=== PATIENT | male | born 1940 | race Caucasian/White ===

== ENCOUNTER → 2021-09-15 14:44 | Outpatient (CLI) | payer MEDICARE, OTHER, SELFPAY ==
--- NOTE | 2021-09-15 14:52 | XR_ITS ---
FINAL REPORT CLINICAL HISTORY: KIDNEY STONE FINDINGS: A single view of the abdomen was obtained. There is a nonobstructive bowel gas pattern. There are no abnormally dilated loops of small bowel. There is a moderate amount of retained stool. There are multiple right renal stones measuring up to 14 mm. There are several small left renal stones measuring up to 3 mm. There are presumed phleboliths in the pelvis. IMPRESSION: Bilateral renal stones measuring up to 14 mm on the right and up to 3 mm on the left. Reviewed, Interpreted and Dictated by Chito Harris III, MD Transcribed by Mary Guzman Authenticated by Chito Harris III, MD on 09/15/2021 03:40:17 PM [facility]
== END ==
PROVIDERS: Visit Provider Urology
DX: N20.0 Calculus of kidney (principal)
CPT/HCPCS: 74018; 87086

== ENCOUNTER → 2021-09-15 15:43 | Outpatient (CLI) | payer MEDICARE, OTHER, SELFPAY | PROVIDERS: Visit Provider Urology | DX: N39.0 Urinary tract infection, site not specified (principal) | CPT/HCPCS: 87086 ==

== ENCOUNTER → 2021-09-29 09:34 | Outpatient (CLI) | payer MEDICARE, OTHER, SELFPAY ==
--- NOTE | 2021-09-29 09:37 | XR_ITS ---
FINAL REPORT CLINICAL HISTORY: KIDNEY STONE COMPARISON: September 15, 2021 FINDINGS: A single view of the abdomen was obtained. There is a nonobstructive bowel gas pattern. There are no abnormally dilated loops of small bowel. There is a moderate amount of retained stool. There are 2 right renal stones measuring 14 mm and 12 mm. There is a probable left renal stone measuring 4 mm. There are presumed phleboliths in the pelvis. There is mild rightward curvature of the spine. IMPRESSION: Nephrolithiasis. Reviewed, Interpreted and Dictated by Chito Harris III, MD Transcribed by Mary Guzman Authenticated by Chito Harris III, MD on 09/29/2021 10:38:51 AM [facility]
== END ==
PROVIDERS: Visit Provider Urology
DX: N20.0 Calculus of kidney (principal)
CPT/HCPCS: 74018

== ENCOUNTER → 2021-10-12 09:37 | Outpatient (CLI) | payer MEDICARE, OTHER, SELFPAY | PROVIDERS: Visit Provider Urology | DX: N20.0 Calculus of kidney (principal); Z01.812 Encounter for preprocedural laboratory examination; Z11.52 Encounter for screening for COVID-19 | CPT/HCPCS: C9803; U0003; U0005 ==

== ENCOUNTER → 2021-10-13 10:39 | Outpatient (CLI) | payer MEDICARE, OTHER, SELFPAY ==
--- NOTE | 2021-10-13 10:40 | CT_ITS ---
FINAL REPORT CLINICAL HISTORY: KIDNEY STONE, PAIN LEFT SIDE, HX OF STONES, DIABETIC FINDINGS: Axial CT images of the abdomen and pelvis were obtained without intravenous contrast. Coronal reformatted images were also obtained.This study was performed with techniques to keep radiation doses as low as reasonably achievable (ALARA). Individualized dose reduction techniques using automated exposure control or adjustment of mA and/or kV according to the patient's size were employed. Abdomen: There is mild scarring in the lung bases. There are multiple bilateral nonobstructing renal stones. The largest stone in the upper pole the right kidney measures 13 mm. There is moderate left hydronephrosis and hydroureter secondary to several adjacent distal left ureteral stones measuring up to 5 mm. The liver, spleen and pancreas have an unremarkable, unenhanced appearance. No mass or adenopathy is seen. No inflammatory process is identified. There are moderate vascular calcifications. Pelvis: There are several phleboliths in the pelvis. There are prostate calcifications. No mass or abnormal fluid collection is identified. IMPRESSION: Moderate left hydronephrosis and hydroureter secondary to several adjacent distal left ureteral stones. Multiple bilateral nonobstructing renal stones noted. Reviewed, Interpreted and Dictated by Chito Harris III, MD Transcribed by Shira Martin Authenticated by Chito Harris III, MD on 10/13/2021 12:52:24 PM [facility]
--- NOTE | 2021-10-13 10:40 | XR_ITS ---
FINAL REPORT CLINICAL HISTORY: ureteral stone on left side, pain COMPARISON: 09/29/2021 FINDINGS: SINGLE VIEW ABDOMEN There is a nonspecific, nonobstructive gas pattern. There is no bowel dilatation. There is a 7 mm calcification in left lower pelvis consistent with a distal ureteral stone. There is probable phlebolith on the right. There is a 14 mm stone in the right kidney. There is a small nonobstructing stone in the left kidney. IMPRESSION: Bilateral renal stones. Distal left ureteral stone. Reviewed, Interpreted and Dictated by Chito Harris III, MD Transcribed by Renetta Doss Authenticated by Chito Harris III, MD on 10/13/2021 12:31:32 PM [facility]
== END ==
PROVIDERS: Visit Provider Urology
DX: N20.1 Calculus of ureter (principal); N20.0 Calculus of kidney
CPT/HCPCS: 74018; 74176

== ENCOUNTER 2021-10-14 09:26 | Day surgery (SDC) | payer MEDICARE, OTHER, SELFPAY ==
[2021-10-12 08:14] VITALS: BMI 32.1
[2021-10-14] VITALS (10 sets, daily range): BP systolic 99–189; BP diastolic 57–97; PULSE 60–78; RESP 10–18; TEMP 36.3–36.9; O2SAT 92–98
[2021-10-14 10:14] LABS: MANUAL DIFFERENTIAL MANUAL DIFFERENTIAL (MANUAL DIFF)
[2021-10-14 10:17] LABS: Basophils % 0.4 % (0.1-2.0); Eosinophils # 0.2 K/mm3 (0.0-0.4); Eosinophils % 2.8 % (0.1-12.0); Hematocrit 48.6 % (42.0-52.0); Hemoglobin 16.4 g/dL (14.1-18.0); Lymphocytes # 1.4 K/mm3 (0.7-4.5); Lymphocytes % 16.2 % (10-50); Mean Corpuscular HGB Conc 33.7 g/dL (31.8-35.4); Mean Corpuscular Volume 91.9 fl (80-94); Mean Platelet Volume 8.2 fl (7.4-10.4); Monocytes # 0.5 K/mm3 (0.1-1.0); Monocytes % 6.3 % (1.7-9.3); Neutrophils # 6.2 K/mm3 (1.8-7.8); Neutrophils % 74.3 % (37.0-80.0); Platelet Count 180 K/mm3 (142-424); Red Blood Count 5.29 M/mm3 (4.60-6.20); Red Cell Distribution Width 13.3 % (11.5-17.5); White Blood Count 8.4 K/mm3 (4.8-10.8)
[2021-10-14 10:59] LABS: Chloride 100 mmol/L (98-107)
[2021-10-14 11:00] LABS: Sodium 133 mmol/L (136-145)
[2021-10-14 11:02] LABS: Blood Urea Nitrogen 17 mg/dl (9-20); Creatinine Clearance Estimated 85 mL/min (50-200); Estimated Glomerular Filt Rate 81 ml/min (>60); GFR (African American) 98 ML/MIN (>60)
[2021-10-14 11:03] LABS: Calcium 9.1 mg/dl (8.4-10.2); Carbon Dioxide 28 mmol/L (22.0-30.0); Glucose 132 mg/dl (74-100)
--- NOTE | 2021-10-14 11:08 | HMH.ANESCL ---
[facility] Anesthesia Checklist - Patient Identification Patient Identification: Arm Band - Structural Data Admitted From: Home Planned Operative Procedure/s: Ureteroscopy with stone extraction Consent for Planned Operative Procedure(s) Verified: Yes - NPO Status Verified Time NPO: 06:00 (Coffee) - Additional verifications Anesthesia Reactions: No Hx Blood Transfusions: No Blood Transfusion Reaction: No - Airway Assessment C-Spine Mobility Assessed: Yes TMJ Mobility Assessed: Yes Dentition: Poor Dentition - Neurological Assessment Level of Consciousness: Awake Hx Seizures: No Numbness or tingling in extremities: No - Anesthesia Plan Anesthesia Risk discussed: Yes Anesthesia Plan: Verified ASA Class: III Anesthesia Type: General [facility] History I have reviewed the patient's past medical history: Yes Medical History: Reports:: Diabetes Mellitus Type 2, Hypertension, Kidney Stones, Nephritis, Urinary Tract Infection Denies:: Cancer, MRSA, Seizures *Have you ever received a pneumonia vaccine?: No *Have you received a flu vaccine this season?: No Other Medical History: Denies: Blood Transfusion Reaction Anesthesia experience/problems:: None Other Surgeries: Yes: No Previous Surgery, Colonoscopy Amputation: No Fractures: No - *Social History Last grade of school completed: High school graduate Smoking Status: Never smoker Alcohol Intake: current Alcohol Intake Frequency:: holidays/special occasions only Substance Use Type: denies use *Occupational Status:: retired Housing: house Household Members: none *Travel in the last 8 weeks: None Family Hx:: Cancer, Diabetes
[2021-10-14 11:19] LABS: Lymphocytes % 17 % (10-50); Monocytes % 3 % (2-9); Neutrophils % 80 % (42-76); Platelet Estimate Normal; RBC Morphology Normal; Total Cells Counted 100
--- NOTE | 2021-10-14 12:05 | P.PN_ITS ---
[facility] Anesthesia Record Part I Intake, IV Amount: 500 Estimated blood loss (mL): 0 Urine output (mL): 0 Blood Pressure: 99/57 SaO2: 93 Pulse Rate: 75 Respiratory Rate: 14 Temperature: 98.2 F Patient is:: Drowsy, Oral/Nasal airway Stable to PACU at:: 12:05
[2021-10-14 12:13] LABS: POC Glucose,Bedside 99 (70-110)
--- NOTE | 2021-10-14 12:22 | XR_ITS ---
FINAL REPORT CLINICAL HISTORY: URETEROSCOPY WITH STENT fluoro time: 0:25 FINDINGS: FLUOROSCOPY <1 HR Fluoroscopic guidance was provided to the operating services. Two spot films 4 obtained. A ureteral stent is seen. Twenty-five seconds of fluoroscopy time was utilized. IMPRESSION: 25 seconds of fluoroscopy time. Reviewed, Interpreted and Dictated by Sunil Moreira MD Transcribed by Sang Novak Authenticated by Sunil Moreira MD on 10/17/2021 09:56:15 AM [facility]
--- NOTE | 2021-10-14 15:39 | HMH.OPNOTE ---
Date of procedure: 10/14/21 Pre-op Diagnosis:: Left distal ureteral calculi Post-op Diagnosis:: Left distal ureteral calculi/left ureteral stricture Procedure performed:: Left ureteroscopy dilation of ureteral stricture, stone extraction, left stent placement for dilation of stricture Surgeon:: Qasim Dan MD EQUIPMENT [employer] MACHINERY CLEANER:: Elaine Diego Anesthesia: LMA Estimated blood loss (mL): 0 Clinical Note:: 81-year-old white male with history of nephrolithiasis has had some recent left-sided renal colic. Recent CT scan shows 2-3 small stones in the distal ureter with evidence of obstruction. He presents for urologic management. Operative findings:: 3 ureteral stones were noted proximal to a ureteral stricture Operative note:: Patient taken to the operating room after informed consent was obtained. Was placed on the operating table and general anesthesia administered. Preoperative antibiotics and sequential compression devices placed. He was then placed into the dorsal lithotomy position and prepped and draped in the standard surgical fashion. 20 Bennie passed into the urethra and into the bladder without difficulty. The bladder was examined in a systematic fashion and no abnormalities were noted. The ureteral orifices in their normal anatomic position. A guidewire was passed into the left ureteral orifice and it passed into the left renal pelvis without difficulty. Fluoroscopy failed to reveal the calcifications in the distal ureter very well. The cystoscope then removed and the semirigid ureteroscope passed into the bladder and into the left ureter at about 2 cm proximally there was narrowing of the ureter. Scope was able to be manipulated past the ureteral narrowing with a little pressure. 3 stones were noted to be proximal to this area of narrowing. A 1.9 Portuguese stone basket was then placed through the scope and the 3 stones were removed with the basket placed into the bladder. The ureteroscope was passed more proximally and no evidence of further stones were noted. The ureteroscope was removed and the cystoscope was replaced and the stones were removed from the bladder. The guidewire was then backloaded over the scope and a 6 x 26 Portuguese stent was passed into the left ureter for dilation of the ureteral stricture. The string was left on for later removal. Urojet placed into the urethra. Patient tolerated procedure well. Condition: stable Disposition: PACU Specimens:: Ureteral stone Complications:: None
[2021-10-18 07:20] VITALS: BP 127/80; PULSE 78; TEMP 36.3
--- NOTE | 2021-10-18 07:20 | HMH.ANESII ---
[facility] Anesthesia Record Part II Discharge Time: 12:35 Destination: Surgical Day Care (OP Surgery) PACU nurse assessment reviewed?: Yes Patient Condition:: Good Anesthesia Complications:: None Swallowing reflex intact?: Yes Cyanosis?: No Blood Pressure: 127/80 Pulse Rate: 78 Temperature: 97.4 F Mental Status: Alert & Oriented Pain level:: 0 Nausea and/or vomitting:: None Intake, IV Amount: 0
[2021-12-01 22:36] LABS: Ca oxalate dihydrate 20%
[2022-05-25 10:57] LABS: POC Glucose,Bedside 136 (70-110)
== END 2021-10-14 13:21 | disposition home or self-care (01) ==
LOC: OR 09:27
PROVIDERS: Visit Provider Urology
PROC: (CPT 52352; principal; 2021-10-14 11:15)
DX: N13.5 Crossing vessel and stricture of ureter without hydronephrosis (principal); N20.1 Calculus of ureter; Z87.448 Personal history of other diseases of urinary system; E11.9 Type 2 diabetes mellitus without complications; I10 Essential (primary) hypertension; Z80.9 Family history of malignant neoplasm, unspecified; Z83.3 Family history of diabetes mellitus; Z88.2 Allergy status to sulfonamides; Z79.84 Long term (current) use of oral hypoglycemic drugs; Z79.899 Other long term (current) drug therapy
CPT/HCPCS: 50945; 74018; 80048; 82370; 82962; 85007; 85014; 85018; 85048; 85049; 96374; C2617

== ENCOUNTER → 2021-11-17 13:06 | Outpatient (CLI) | payer MEDICARE, OTHER, SELFPAY ==
--- NOTE | 2021-11-17 13:12 | XR_ITS ---
FINAL REPORT CLINICAL HISTORY: kidney stone, lower pelvic pain COMPARISON: CT and plain films dated October 13, 2021 FINDINGS: A single view of the abdomen was obtained. There is a nonobstructive bowel gas pattern. There are no abnormally dilated loops of small bowel. There is a large amount of retained stool. There are multiple bilateral renal stones measuring up to 1.5 cm on the right and 0.5 cm on the left. Again seen is a 3 mm distal left ureteral stone. IMPRESSION: Large retained stool. Bilateral nephrolithiasis and a distal left ureteral stone. Reviewed, Interpreted and Dictated by Sunil Moreira MD Transcribed by Sang Novak Authenticated by Sunil Moreira MD on 11/17/2021 02:17:10 PM [facility]
== END ==
PROVIDERS: PCP Internal Medicine; Visit Provider Urology
DX: N20.0 Calculus of kidney (principal)
CPT/HCPCS: 74018

== ENCOUNTER → 2022-03-31 12:44 | Outpatient (CLI) | payer MEDICARE, OTHER, SELFPAY ==
--- NOTE | 2022-03-31 12:50 | XR_ITS ---
FINAL REPORT CLINICAL HISTORY: kidney stone COMPARISON: November 17, 2021 FINDINGS: A single view of the abdomen was obtained. There is a nonobstructive bowel gas pattern. There are no abnormally dilated loops of small bowel. There is a large amount of retained stool. There are bilateral presumed renal stones measuring up to 15 mm on the right. There are phleboliths in the pelvis. IMPRESSION: Large amount of retained stool. Presumed bilateral renal stones. Reviewed, Interpreted and Dictated by Chito Harris III, MD Transcribed by Sang Novak Authenticated and [facility]
--- NOTE | 2022-03-31 13:53 | CT_ITS ---
FINAL REPORT CLINICAL HISTORY: kidney stone, LOWER ABD PAIN FINDINGS: Axial CT images of the abdomen and pelvis were obtained without intravenous contrast. Coronal reformatted images were also obtained.This study was performed with techniques to keep radiation doses as low as reasonably achievable (ALARA). Individualized dose reduction techniques using automated exposure control or adjustment of mA and/or kV according to the patient's size were employed. Abdomen: There is mild bibasilar atelectasis or scarring. There are multiple bilateral nonobstructing renal stones measuring up to 11 mm on the right. Largest stone demonstrates a mean attenuation value of 1300 1 Hounsfield units. There is no right hydronephrosis. There is mild left hydronephrosis and hydroureter secondary to a 2 mm distal left ureteral stone several cm proximal to the UVJ. The gallbladder is present. The liver, spleen and pancreas have an unremarkable, unenhanced appearance. No mass or adenopathy is seen. No inflammatory process is identified. Pelvis: Images of the pelvis reveal the appendix to be normal. There is a moderate to large amount of retained stool. There are multiple colonic diverticulum. There is postoperative change in the left inguinal region. There is a small right inguinal hernia containing fat. IMPRESSION: 2 mm distal left ureteral stone resulting in mild left hydronephrosis and hydroureter. Bilateral nonobstructing renal stones. Reviewed, Interpreted and Dictated by Chito Harris III, MD Transcribed by Sang Novak Authenticated and [facility]
== END ==
PROVIDERS: Visit Provider Urology
DX: N20.0 Calculus of kidney (principal)
CPT/HCPCS: 74018; 74176